=== PATIENT | female | born 1975 | race Caucasian/White ===

== ENCOUNTER → 2016-07-08 | Outpatient (CLI) | payer BC ==
--- NOTE | 2016-07-08 09:20 | US ---
Transabdominal and Endovaginal Pelvic Ultrasound Clinical History: 41-year-old female with [id number] menses. LMP: July 03, 2016. The patient is . TECHNIQUE: A curvilinear 5 MHz transducer was initially used to sonographically evaluate the pelvis, using a full urinary bladder as a window. To better assess the uterine architecture and the adnexal s tructures, endovaginal pelvic sonography was also performed. Color and spectral Doppler were used. Comparison: None available. Findings: Transabdominal Pelvic Sonography: The uterus is anteverted and slightly anteflexed, measuring 8.6 x 6 .6 x 5.1 cm the urinary bladder is only partially distended. The right and left ovaries are normal. T here is no free fluid. Endovaginal Pelvic Sonography: The endometrium is measures 11 mm in AP diameter, and in the fundal as pect, there is a smoothly contoured oval shaped echogenic polypoid structure measuring 5 x 9 x 7 mm ( reference images 33-38). A tiny amount of endometrial fluid is observed The right ovary measures 3.0 x 2.3 x 2.8 cm. The left ovary measures 2.7 x 1.9 x 2.6 cm. There are no cystic or solid adnexal mas ses identified. Tiny follicles are seen in association with each ovary. Normal arterial blood flow is documented to both ovaries by Doppler ultrasound. The resistive index of the right ovary is 0.52 and of the left ovary is 0.60. There is no free fluid in the pelvic cul-de-sac. Impression: There is a 9 mm echogenic polyp identified within the fundal endometrium.
== END ==
LOC: CIMAGING 07:28
PROVIDERS: ATTEND Family Medicine
DX: N84.0 Polyp of corpus uteri (principal)
CPT/HCPCS: 76856-PO

== ENCOUNTER 2017-05-30 18:23 | Emergency (ER) | payer BC ==
[2017-05-30 18:29] VITALS: RESP 18; TEMP 98.2
--- NOTE | 2017-05-30 18:44 | CPEKG ---
Heart Rate: 79 RR Interval: 759 P-R Interval: 144 QRSD Interval: 98 QT Interval: 384 QTC Interval: 441 P [place]: 44 QRS [place]: 9 T Wave [place]: 25 EKG Severity - NORMAL ECG - EKG Impression: SINUS RHYTHM Electronically Signed By: Sherman Robbins 30-May-2017 21:22:01
--- NOTE | 2017-05-30 19:13 | EDPHY ---
HPI/HX/ROS/PE/MDM Narrative: CHIEF COMPLAINT: Shortness of breath HPI: This patient is a 43 year old female complaining of shortness of breath and chest tightness. Yesterday, she noted she was mildly short of breath but was not concerned. Today, she had the sensation that she could not catch her breath , and was yawning frequently. She became so out of breath that she had to stop while going up the stairs in her home, and after every aisle while shopping at [employer]. She has noted chest tightness as well. She states this does not hurt with breathing, but feels "uncomfortable". This does not change with deep inspiration. When she returned home from [facility], she checked her blood pressure and noted it was 186/115. Following a nap, she rechecked it and continued to be hypertensive. She denies any personal or family history of clots, clotting disorders, heart, or lung problems. She did travel to [place] for one week, returning Friday, four days ago. She denies any pain or swelling in her legs or sharp chest pains. No fever, vomiting, diarrhea, urinary complaints, or other associated symptoms. REVIEW OF SYSTEMS: Aside from elements discussed in the HPI, a comprehensive 10-point review of systems was reviewed and is negative. PMH: 1. Pleurisy SOCIAL HISTORY: . Lives in [place]. Works as a homemaker. PHYSICAL EXAM: General:Patient is alert, in no acute distress. ENT:Eyes are normal to inspection. ENT inspection normal. Neck: Normal inspection. Full range of motion. Respiratory:No respiratory distress. Breath sounds normal bilaterally. Cardiovascular: Regular rate and rhythm. Strong peripheral pulses. Normal cap refill. Abdomen:The abdomen is nontender to palpation. There are no peritoneal signs. There are normal bowel sounds. Back: Normal to inspection. No tenderness to palpation. Skin: Normal color. No rash. Warm and dry. Extremities: Normal appearance. Full range of motion. Neuro: Oriented x3. Normal motor function. Normal sensory function. ED Course: 42 year old female presents with one day history of shortness of breath and chest tightness, worsening with exertion. Exam unremarkable. Plan for lab including CBC, BMP, troponin, D-dimer, BHCG. Plan for EKG, chest x-ray. EKG was ordered and interpreted by myself. Please see [employer] system for official reading. Sinus rhythm, rate 79. D-dimer and troponin negative. Labs otherwise largely unremarkable. Elevated WBC at 12,000. Chest x-ray negative for acute processes. 20:30 Reassessed patient. Discussed laboratory and imaging results. Plan to discharge home in good condition. She has been referred to cardiology and will follow up within one week for further evaluation. Return precautions discussed. She is comfortable with this plan. MDM: This patient presents with chest discomfort and shortness of breath with exertion. We performed an extensive workup in the ED which is negative for signs of ACS, PE, PNA, anemia, sepsis. Her HEART score places her at very low risk for cardiac event. I think she is safe for discharge home with cardiology follow-up. We discussed strict return precautions. - Data Points Imaging Results: Imaging Impressions Chest X-Ray 05/30/17 19:22 IMPRESSION: Normal chest x-ray. Imaging: I viewed and interpreted images myself Laboratory Results: Laboratory Results 05/30/17 18:45 05/30/17 18:45 05/30/17 05/30/17 05/30/17 18:45 18:45 18:45 WBC RBC Hgb Hct MCV MCH MCHC RDW Plt Count MPV Neut % (Auto) Lymph % (Auto) [place] % (Auto) Eos % (Auto) Baso % (Auto) Nucleat RBC Rel Count Absolute Neuts (auto) Absolute Lymphs (auto) Absolute Monos (auto) Absolute Eos (auto) Absolute Basos (auto) Absolute Nucleated RBC Immature Gran % Immature Gran # D-Dimer < 0.27 ug/mLFEU ug/mLFEU (0.00-0.50) Sodium 141 mEq/L mEq/L (134-144) Potassium 3.6 mEq/L mEq/L (3.5-5.2) Chloride 101 mEq/L mEq/L (97-110) Carbon Dioxide 24 mEq/l mEq/l (22-31) Anion Gap 16 mEq/L mEq/L (8-16) BUN 16 mg/dL mg/dL (7-23) Creatinine 0.8 mg/dL mg/dL (0.6-1.0) Estimated GFR > 60 Glucose 97 mg/dL mg/dL (70-100) Calcium 10.6 mg/dL H mg/dL (8.5-10.4) Troponin I < 0.012 ng/mL ng/mL (0.000-0.034) Beta HCG, Qual NEGATIVE 05/30/17 18:45 WBC 12.47 10^3/uL H 10^3/uL (3.80-9.50) RBC 5.68 10^6/uL H 10^6/uL (4.18-5.33) Hgb 15.7 g/dL g/dL (12.6-16.3) Hct 45.9 % % (38.0-47.0) MCV 80.8 fL L fL (81.5-99.8) MCH 27.6 pg L pg (27.9-34.1) MCHC 34.2 g/dL g/dL (32.4-36.7) RDW 13.5 % % (11.5-15.2) Plt Count 363 10^3/uL 10^3/uL (150-400) MPV 11.3 fL fL (8.7-11.7) Neut % (Auto) 60.8 % % (39.3-74.2) Lymph % (Auto) 32.1 % % (15.0-45.0) [place] % (Auto) 5.0 % % (4.5-13.0) Eos % (Auto) 1.2 % % (0.6-7.6) Baso % (Auto) 0.5 % % (0.3-1.7) Nucleat RBC Rel Count 0.0 % % (0.0-0.2) Absolute Neuts (auto) 7.59 10^3/uL H 10^3/uL (1.70-6.50) Absolute Lymphs (auto) 4.00 10^3/uL H 10^3/uL (1.00-3.00) Absolute Monos (auto) 0.62 10^3/uL 10^3/uL (0.30-0.80) Absolute Eos (auto) 0.15 10^3/uL 10^3/uL (0.03-0.40) Absolute Basos (auto) 0.06 10^3/uL 10^3/uL (0.02-0.10) Absolute Nucleated RBC 0.00 10^3/uL 10^3/uL (0-0.01) Immature Gran % 0.4 % % (0.0-1.1) Immature Gran # 0.05 10^3/uL 10^3/uL (0.00-0.10) D-Dimer Sodium Potassium Chloride Carbon Dioxide Anion Gap BUN Creatinine Estimated GFR Glucose Calcium Troponin I Beta HCG, Qual General Time Seen by Provider: 05/30/17 18:34 Initial Vital Signs: Initial Vital Signs Temperature (C) 36.8 C 05/30/17 18:24 Heart Rate 83 05/30/17 18:24 Respiratory Rate 18 05/30/17 18:24 Blood Pressure 170/115 H 05/30/17 18:24 O2 Sat (%) 95 05/30/17 18:24 O2 Delivery Mode Room Air Allergies/Adverse Reactions: No Known Allergies Allergy (Unverified 05/30/17 18:29) Home Medications: Medication Instructions Recorded Celexa 05/30/17 Departure - Departure Disposition: Home, Routine, Self-Care Clinical Impression: Chest tightness, Shortness of breath Condition: Good Instructions: Chest Pain (ED), Shortness of Breath (ED) Additional Instructions: Follow-up with your primary doctor within 2-3 days. Return to the Emergency Department for fever, chest pain, shortness of breath, increasing pain or other worsening of condition. Follow up with a mechanical design technician for further testing, as soon as possible, within one week. We have referred you to our mechanical design technician telephone directory deliverer. As we discussed, it is impossible to fully rule out heart disease as the cause of your chest pain in the emergency department. We would be happy to reevaluate you and observe you in the hospital at any time. Referrals: Yaquelin Koo [Primary Care Provider] - As per Instructions Cata Jimenez MD [Medical Doctor] - As per Instructions Report Scribed for: Sherman Robbins Report Scribed by: Sanjuana Aldridge Date of Report: 05/30/17 Time of Report: 19:13 Physician Review and Approval Statement: Portions of this note were transcribed by an ED scribe. I personally performed the history, physical exam, and medical decision making; and confirm the accuracy of the information in the transcribed note.
[2017-05-30 19:27] LABS: PLATELET COUNT 363 10^3/uL (150-400)
[2017-05-30 20:54] VITALS: BP 151/94; PULSE 67; O2SAT 96
== END 2017-05-30 21:23 | disposition home or self-care (01) ==
DX: R06.02 Shortness of breath (principal); R07.89 Other chest pain